=== PATIENT | female | born 1935 | race Caucasian/White ===

== ENCOUNTER 2021-05-02 09:45 | Outpatient (CLI) | payer MEDICARE ==
[~2021-05-02 09:45] MED LIST: Iopamidol 370 76% 100 ML VIAL ONE
== END 2021-05-02 09:46 | disposition home or self-care (01) ==
LOC: EDSEX → NM 09:45
PROVIDERS: ATTEND Internal Medicine Hematology & Oncology
DX: C50.412 Malignant neoplasm of upper-outer quadrant of left female breast (principal); R59.0 Localized enlarged lymph nodes; K44.9 Diaphragmatic hernia without obstruction or gangrene; K57.30 Diverticulosis of large intestine without perforation or abscess without bleeding; I51.7 Cardiomegaly; J47.9 Bronchiectasis, uncomplicated; J98.4 Other disorders of lung; I70.0 Atherosclerosis of aorta; N64.89 Other specified disorders of breast; E27.8 Other specified disorders of adrenal gland; N28.9 Disorder of kidney and ureter, unspecified; N85.8 Other specified noninflammatory disorders of uterus; M16.0 Bilateral primary osteoarthritis of hip; M47.819 Spondylosis without myelopathy or radiculopathy, site unspecified; M41.9 Scoliosis, unspecified
CPT/HCPCS: 71260; 74177; 78306; A9503

== ENCOUNTER 2021-05-20 08:38 | Outpatient (CLI) | payer MEDICARE | END 2021-05-20 08:39 | disposition home or self-care (01) | LOC: ULT 08:38 | PROVIDERS: ATTEND Internal Medicine Hematology & Oncology | DX: R93.5 Abnormal findings on diagnostic imaging of other abdominal regions, including retroperitoneum (principal); C50.412 Malignant neoplasm of upper-outer quadrant of left female breast | CPT/HCPCS: 76705 ==